=== PATIENT | male | born 1980 | race American Indian/Alaskan Native ===

== ENCOUNTER 2021-03-01 02:14 | Emergency (ER) | payer SELFPAY ==
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
[2021-03-01 08:35] VITALS: BP 130/90
== END 2021-03-01 08:34 | disposition home or self-care (01) ==
LOC: ED 02:14
DX: M54.2 Cervicalgia (principal); V43.52XA Car driver injured in collision with other type car in traffic accident, initial encounter; Y93.89 Activity, other specified; Y92.89 Other specified places as the place of occurrence of the external cause; Y99.8 Other external cause status
CPT/HCPCS: 72040; 99283